=== PATIENT | female | born 1965 | race Caucasian/White ===

== ENCOUNTER 2016-11-14 12:34 | Emergency (ER) | payer MEDICAID ==
[~2016-11-14] VITALS: Ht 157.5 cm; Wt 61.5 kg
[2016-11-14 12:55] VITALS: Ht 157.5 cm; Wt 61.5 kg
[2016-11-14] MEDS ORDERED: PRED20TA PO (13:59)
--- NOTE | 2016-11-14 15:49 | ERD ---
ER Documentation Chief Complaint Date/Time DATE: 11/14/16 TIME: 15:47 Chief Complaint ITCHINESS AND RASHES ALL OVER THE BODY STARTED 8 DAY AGO HPI Patient is a 51-year-old female with no medical problems who presents with a rash. The patient has had a rash to her arms and legs bilaterally. The symptoms started 1 week ago. The rash is itchy and red. It is palpable. The patient says that she gets this every year but does not know why. She has never had any medications for it. The daughter did try to treat her with calamine lotion and Benadryl. She denies any new soaps, lotions, or medications. The patient does not currently have a primary doctor. ROS All systems reviewed and are negative except as per history of present illness. Medications Home Meds Active Scripts Prednisone* (Prednisone*) 20 Mg Tab, 60 MG PO DAILY for 5 Days, TAB Prov:RASHID GRANDE MD 11/14/16 Allergies Allergies: Coded Allergies: No Known Allergy (Unverified , 11/14/16) PMhx/Soc Medical and Surgical Hx: pt denies Medical Hx, pt denies Surgical Hx Hx Alcohol Use: No Hx Substance Use: No Hx Tobacco Use: No FmHx Family History: diabetes Physical Exam Vitals Vital Signs Date Time Temp Pulse Resp B/P Pulse Ox O2 Delivery O2 Flow Rate FiO2 11/14/16 12:55 98.2 60 19 134/76 97 Physical Exam Const: No acute distress. Head: Atraumatic Eyes: Normal Conjunctiva ENT: Normal External Ears, Nose and Mouth. Neck: Full range of motion..~ No meningismus. Resp: Clear to auscultation bilaterally Cardio: Regular rate and rhythm, no murmurs Abd: Soft, non tender, non distended. Normal bowel sounds Skin: Erythematous, palpable rash to the bilateral arms and legs with blanching Back: No midline or flank tenderness Ext: No cyanosis, or edema Neur: Awake and alert Psych: Normal Mood and Affect Procedures/MDM Patient is a 51-year-old female who appears to have an acute dermatitis. I am unclear to the cause at this time but I do believe that she would benefit from 5 days of steroids. I will give her prednisone for 5 day course. She has no oropharyngeal swelling or difficulty with breathing. I believe outpatient management is appropriate. The patient can return for any worsening symptoms. She can use Benadryl for itching. She should follow-up the local clinics within 24-48 hours for reevaluation she does not currently have a primary doctor. Departure Diagnosis: Primary Impression: Dermatitis Additional Impression: Rash Condition: Fair Patient Instructions: Self-Care for Skin Rashes [facility] Usted se lloyd hecho un examen mdico de control que le indica que no est en yamile condicin que requiera tratamiento urgente en el Departamento de Emergencia. Un estudio ms profundo y el tratamiento de peraza condicin pueden esperar sin ningn riesgo hasta que usted sea atendida/o en el consultorio de peraza mdico o yamile cl hayes. Es responsabilidad suya arreglar yamile sulma para el seguimiento del christine. MANEJO DE CONDICIONES NO URGENTES EN EL FUTURO 1) Si usted tiene un mdico de atencin primaria: Usted debera llamar a peraza mdico de atencin primaria antes de venir al departamento de emergencia. Despus de las horas de consultorio, peraza doctor o peraza asociado/a est disponible por telfono. El mdico o enfermero de kavitha en el servicio telefnico puede asesorarle por jordyn medio para atender el problema, o christine contrario se puede programar yamile sulma. 2) Si usted no tiene un mdico de atencin primaria: Llame al mdico o clnica de referencia que aparece abajo shanda las horas de consultorio para hacer yamile sulma para que le vean. CLINICAS: [facility] [phone] [facility] [phone] [facility] [phone] [facility] [phone] [facility] [phone] [facility] [phone] Additional Instructions: Llame al doctor MAANA y elijah yamile SULMA PARA DENTRO DE 1-2 MI.Dgale a la secretaria que nosotros le instruimos hacer esta sulma.Avise o llame si peraza condicin se empeora antes de la sulma. Regresa aqui si peor o no mejor. RASHID GRANDE MD Nov 14, 2016 15:49
== END 2016-11-14 15:04 | disposition home or self-care (01) ==
LOC: FTE 12:34
DX: L25.9 Unspecified contact dermatitis, unspecified cause (principal)
CPT/HCPCS: 99283